=== PATIENT | male | born 1980 | race Caucasian/White ===

== ENCOUNTER 2018-09-01 05:44 | Emergency (ER) | payer BC ==
[2018-09-01] MEDS: CEPHALEXIN 500 MG CAP PO (06:33)
[2018-09-01] MEDS: DIPHTH/TET/ACEL PERTUSS (ADULT) 0.5 ML VIAL IM* (06:34)
[2018-09-01] MEDS: LIDOCAINE 1% (MDV) 20 ML INJ SC (07:10)
== END 2018-09-01 07:31 | disposition home or self-care (01) ==
LOC: FTE 05:44
DX: S61.210A Laceration without foreign body of right index finger without damage to nail, initial encounter (principal); I10 Essential (primary) hypertension; E11.9 Type 2 diabetes mellitus without complications; W26.0XXA Contact with knife, initial encounter; Y92.9 Unspecified place or not applicable; Z23 Encounter for immunization
CPT/HCPCS: 12001; 90471; 90715; 99283-25

== ENCOUNTER 2018-11-02 06:47 | Emergency (ER) | payer BC ==
[2018-11-02] MEDS: IBUPROFEN 600 MG TAB PO (07:11)
== END 2018-11-02 07:44 | disposition home or self-care (01) ==
LOC: FTE 06:47
DX: J10.1 Influenza due to other identified influenza virus with other respiratory manifestations (principal); I10 Essential (primary) hypertension; E11.9 Type 2 diabetes mellitus without complications
CPT/HCPCS: 87400; 99283

== ENCOUNTER 2018-12-25 08:47 | Emergency (ER) | payer BC ==
[2018-12-25 10:51] LABS: ADD MAN DIFF? NO
[2018-12-25] MEDS: SOD CHLORIDE 0.9% 1,000 ML IV (10:53)
[2018-12-25 10:54] LABS: BASOPHIL # 0.1 10^3/ul (0.0-0.1); BASOPHILS % 0.6 % (0.0-2.0); EOSINOPHILS % 0.3 % (0.0-7.0); HEMATOCRIT 43.1 % (42.0-52.0); HEMOGLOBIN 14.8 g/dl (14.0-18.0); LYMPHOCYTES # 1.7 10^3/ul (0.8-2.9); LYMPHOCYTES % 17.3 % (15.0-51.0); MEAN CORPUSCULAR HEMOGLOBIN 28.8 pg (29.0-33.0); MEAN CORPUSCULAR HGB CONC 34.3 g/dl (32.0-37.0); MEAN CORPUSCULAR VOLUME 83.9 fl (82.0-101.0); MEAN PLATELET VOLUME 9.4 fl (7.4-10.4); MONOCYTE # 0.6 10^3/ul (0.3-0.9); MONOCYTES % 6.1 % (0.0-11.0); NEUTROPHIL # 7.6 10^3/ul (1.6-7.5); NEUTROPHILS % 75.3 % (39.0-77.0); PLATELET COUNT 345 10^3/UL (140-415); RED BLOOD COUNT 5.14 10^6/ul (4.70-6.10); RED CELL DISTRIBUTION WIDTH 12.5 % (11.5-14.5)
[2018-12-25] MEDS: MECLIZINE 12.5 MG TAB PO (10:54)
[2018-12-25 11:19] LABS: ANION GAP 12 (5-13); BLOOD UREA NITROGEN 14 mg/dl (7-20); CARBON DIOXIDE 26 mmol/L (21-31); CHLORIDE 103 mmol/L (97-110); CREATININE 0.85 mg/dl (0.61-1.24); Estimated GFR > 60 mL/min (>60); GLUCOSE 224 mg/dl (70-220); POTASSIUM 4.6 mmol/L (3.5-5.1); SODIUM 141 mmol/L (135-144)
== END 2018-12-25 12:59 | disposition home or self-care (01) ==
LOC: E/R 08:47
DX: H81.399 Other peripheral vertigo, unspecified ear (principal); F14.10 Cocaine abuse, uncomplicated; I10 Essential (primary) hypertension; E11.9 Type 2 diabetes mellitus without complications; Z87.891 Personal history of nicotine dependence
CPT/HCPCS: 36415; 70450; 80048; 85025; 93005; 99285-25